=== PATIENT | female | born 1970 | race Caucasian/White ===

== ENCOUNTER 2018-01-03 14:08 | Emergency (ER) | payer OTHER ==
[~2018-01-03] VITALS: Ht 154.9 cm; Wt 63.5 kg
[~2018-01-03 14:08] MED LIST: DILAUDID2 M1 PO; MULTI-DAY PLUS1 EAC1 PO; VITAMIN B-121000 MC3 PO; VITAMIN D3400 UNI1 PO
--- NOTE | 2018-01-03 14:51 | RADIOLOGY REPORT ---
EXAMINATION: XR CHEST CLINICAL INFORMATION: Pneumonia CHF COMPARISON: None TECHNIQUE: 2 views of the chest were obtained. FINDINGS: No significant abnormality is noted involving the heart, lungs, mediastinum, bony thorax or soft tissues. IMPRESSION: Unremarkable examination.
[2018-01-03 14:57] LABS: ABSOLUTE BASOPHIL COUNT 0 /CUMM (0.0-0.2); ABSOLUTE EOSINOPHIL COUNT 0.2 /CUMM (0.0-0.7); ABSOLUTE GRANULOCYTE CT 2.7 /CUMM (1.4-6.5); ABSOLUTE LYMPH COUNT 1.8 /CUMM (1.2-3.4); ABSOLUTE MONOCYTE COUNT 0.4 /CUMM (0.10-0.60); BASOPHIL % 0.6 % (0.0-2.0); EOSINOPHIL % 3.7 % (0-5); GRANULOCYTE % 53.2 % (42.2-75.2); HEMATOCRIT 36.1 % (37-47); MEAN CORPUSCULAR HGB 31.9 PG (27.0-31.0); MEAN CORPUSCULAR HGB CONC 34.8 G/DL (33.0-37.0); MEAN CORPUSCULAR VOLUME 91.5 FL (81.0-99.0); MEAN PLATELET VOLUME 8.3 FL (7.4-10.4); PLATELET COUNT 245 /CUMM (130-400); RBC DISTRIBUTION WIDTH 12.2 % (11.5-14.5); RED BLOOD CELL CT 3.95 /CUMM (4.20-5.40); WHITE BLOOD CELL COUNT 5.1 /CUMM (4.8-10.8)
--- NOTE | 2018-01-03 18:52 | ED GENERAL ADULT ---
History of Present Illness General Chief Complaint: Chest Pain Stated Complaint: CHEST PAIN Source: patient Exam Limitations: no limitations Vital Signs & Intake/Output Vital Signs & Intake/Output Vital Signs Date Time Temp Pulse Resp B/P B/P Pulse O2 O2 Flow FiO2 Mean Ox Delivery Rate 01/03 2055 97.6 60 20 129/83 98 Room Air 01/03 1911 Room Air 01/03 1905 97.7 64 16 147/86 100 Room Air 01/03 1754 96.4 61 18 134/91 98 Room Air 01/03 1438 96.2 55 15 128/82 99 Room Air Room Air Allergies Coded Allergies: venom-honey bee (BEE VENOM (HONEY BEE)) (Severe, SEVERE, EXTREME SWELLING TRAVELS FROM SITE OF STING 01/03/18) PT REPORTS BEING STUNG ON BIKINI LINE AND HER WHOLE LEG UP TO UNDER HER BREAST SWELLED. PT ALSO REPORTS RECEIVING DESENSITIZATION SHOTS AND THE SITE OF INJ AND HER ARM SWELLING Penicillins (HIVES 01/03/18) amoxicillin (HIVES 01/03/18) Reconcile Medications Cholecalciferol (Vitamin D3) (Vitamin D3) (Unknown Strength) TABLET (Unknown Dose) PO DAILY SUPPLEMENT (Reported) Cyanocobalamin (Vitamin B-12) (Unknown Strength) TABLET (Unknown Dose) PO DAILY SUPPLEMENT (Reported) Multivitamin-Min/Iron/FA/Vit K (Multi-Day Plus Minerals Tablet) 18 MG IRON-400 MCG-25 MCG TABLET 1 TAB PO DAILY SUPPLEMENT (Reported) Omeprazole 40 MG CAPSULE.DR 1 CAP PO DAILY GERD Triage Note: PT TO ED FOR C/C OF PRESSURE TO MID CHEST AREA, THAT RADIATES INTO BACK SINCE LAST NIGHT. DENIES SOB. NO ACUTE DISTRESS NOTED. Triage Nurses Notes Reviewed? yes HPI: 47-year-old woman with a history of cholecystitis and gallstone pancreatitis status post cholecystectomy 2 years ago seen for evaluation of epigastric chest pain. Patient reports that she was in her normal state of health last evening when she went to sleep and was awoken with this 8/10 chest pain radiating straight through to her back similar to when she had her gallstones associated with mild nausea. She attempted to locate some Tums but could not find some. She was uncomfortable overnight and decided to try to see if it went away. Due to persistence of her discomfort throughout the day she came to the [facility] ED. (Adeel Urias MD) Past History Travel History Traveled to [place] past 21 day No Medical History Any Pertinent Medical History? see below for history Neurological: NONE EENT: NONE Cardiovascular: NONE Respiratory: NONE Gastrointestinal: NONE Hepatic: NONE Renal: NONE Musculoskeletal: NONE Psychiatric: NONE Endocrine: NONE Blood Disorders: NONE Cancer(s): NONE SPECIAL EDUCATION PRESCHOOL TEACHER/Reproductive: NONE Tetanus Vaccine: 06/22/12 Surgical History Surgical History: cholecystectomy, Psychosocial History What is your primary language Serbian Tobacco Use: Quit >30 days ago ETOH Use: occasional use Illicit Drug Use: denies illicit drug use Family History Hx Contributory? No (Adeel Urias MD) Review of Systems Review of Systems Constitutional: Reports: see HPI. (Adeel Urias MD) Physical Exam Physical Exam General Appearance: well developed/nourished, no apparent distress, alert, awake , comfortable Comments: General - well developed, well nourished middle aged woman in no acute distress HEENT - NCAT, PERRL, EOMI, anicteric sclera Neck- Supple, no JVD/HJR, no bruits, trachea midline, thyroid normal Cardio - S1, S2 w/o murmurs/gallops/rubs; regular rate and rhythm Resp - Clear to auscultation bilaterally GI - Soft, nontender, nondistended, Grimaldo sign negative, bowel sounds present Neuro - Awake and alert, CN II - XII grossly intact Extremities - No edema, pulses intact Core Measures ACS in differential dx? No CVA/TIA Diagnosis: No Sepsis Present: No Sepsis Focused Exam Completed? No (Adeel Urias MD) Progress Differential Diagnoses I considered the following diagnoses in my evaluation of the patient: GERD, cholecystitis, pancreatitis, angina Plan of Care: Orders Procedure Date/time Status Add-on Test (ER Only) 01/03 1852 Active TROPONIN LEVEL 01/03 1835 Complete EKG 01/03 1835 Active LIPASE 01/03 1440 Complete WESTERGREN SED RATE 01/03 1440 Complete C-REACTIVE PROTEIN 01/03 1440 Complete TROPONIN LEVEL 01/03 1417 Complete COMPREHENSIVE METABOLIC PANEL 01/03 1417 Complete CBC WITHOUT DIFFERENTIAL 01/03 1417 Complete EKG 01/03 1410 Active Laboratory Tests 01/03/18 1901: Troponin I < 0.01 01/03/18 1440: Anion Gap 7, Estimated GFR > 60, BUN/Creatinine Ratio 20.0, Glucose 92, Calcium 9.8, Total Bilirubin 0.4, AST 24, ALT 31, Alkaline Phosphatase 33, Troponin I < 0.01, C-Reactive Prot, Quant < 0.5, Total Protein 7.7, Albumin 4.6, Globulin 3.1 , Albumin/Globulin Ratio 1.5, Lipase 31, CBC w Diff NO MAN DIFF REQ, RBC 3.95 L , MCV 91.5, MCH 31.9 H, MCHC 34.8, RDW 12.2, MPV 8.3, Gran % 53.2, Lymphocytes % 34.2, Monocytes % 8.3, Eosinophils % 3.7, Basophils % 0.6, Absolute Granulocytes 2.7, Absolute Lymphocytes 1.8, Absolute Monocytes 0.4, Absolute Eosinophils 0.2, Absolute Basophils 0, ESR Westergren 12 Initial ED EKG: none, normal intervals, normal p-waves, normal QRS complex, normal sinus rhythm Comments: 47-year-old woman with history of gallstone pancreatitis and cholecystitis status post cholecystectomy (2015) seen for evaluation of acute onset epigastric chest discomfort waking her from sleep similar to her episode 2 years ago when she had her gallbladder removed. Vital signs remain within normal limits. On physical exam patient has a negative Grimaldo sign a soft, nontender, nondistended abdomen without any peritoneal signs. Labs including CBC, serum chemistry, troponin 2, CRP, and lipase are unremarkable or negative. ESR is pending. Limited abdominal ultrasound demonstrated no CBD dilation or peripancreatic inflammation. Clinically patient appears to have gastro-esophageal reflux disease. She has apparently trialed PPI in the past for short time and does not recall the results. She is instructed to order picker [id number] omeprazole and to follow -up with her PCP as an outpatient. (Adonay MAY,Adeel) Departure Departure Disposition: HOME OR SELF CARE Condition: Stable Clinical Impression Primary Impression: GERD (gastroesophageal reflux disease) Referrals: Helena MAY,Jose Luna (PCP/Family) Additional Instructions: Start taking omeprazole 20 mg by mouth daily; this can be obtained over-the- counter. Take this medication for the next 4 weeks. Follow-up with your primary care provider Dr. Malik within the next 2 weeks. Call 911 or return to the ED should her symptoms return. Departure Forms: Customer Survey General Discharge Information Prescriptions: Current Visit Scripts Omeprazole 1 CAP PO DAILY #30 CAP (Adeel Urias MD) Resident Co-Sign Statement Statement: ED Attending supervision documentation- [] I saw and evaluated the patient. I have also reviewed all the pertinent lab results and diagnostic results. I agree with the findings and the plan of care as documented in the Resident's documentation. [x] I have reviewed the ED Record and agree with the Resident's documentation. [] Additions or exceptions (if any) to the Resident's note and plan are summarized below: [] (Reinier Gay DO) Critical Care Note Critical Care Note Critical Care Time: non-applicable (Adeel Urias MD)
--- NOTE | 2018-01-03 20:47 | ULTRASOUND REPORT ---
EXAMINATION: US ABDOMEN LIMITED CLINICAL INFORMATION: Severe pain. Status post cholecystectomy 3 years ago.. COMPARISON: Ultrasound of abdomen 08/24/2015. CT scan abdomen pelvis 03/28/2017 TECHNIQUE: Real-time imaging of the right upper quadrant abdominal viscera.: Doppler exam used. FINDINGS: PANCREAS: The pancreatic head and body are visualized and is normal. The tail is obscured by bowel gas. LIVER: Normal. The liver demonstrates normal size, contour and echogenicity. No focal lesion or intrahepatic biliary duct dilatation. GALLBLADDER: Status post cholecystectomy. COMMON BILE DUCT: Extrahepatic CBD measures 0.4 cm. RIGHT KIDNEY: Normal. No hydronephrosis. No renal calculi or focal parenchymal lesions. The kidney measures 10.7 cm in maximum dimension. FREE FLUID: None. IMPRESSION: Status post cholecystectomy. No bile duct dilatation. No acute changes right upper quadrant of the abdomen.
[2018-01-03 20:55] VITALS: BP 129/83
[2018-01-03] MEDS ORDERED: OMEPRAZOLE40 M1 PO (21:18)
== END 2018-01-03 21:32 ==
LOC: ERH 14:08
PROVIDERS: Physician Assistant Medical
DX: K21.9 Gastro-esophageal reflux disease without esophagitis (principal); R07.89 Other chest pain
CPT/HCPCS: 71046; 93005; 93010